=== PATIENT | male | born 1995 | race Caucasian/White ===

== ENCOUNTER 2020-06-04 21:18 | Emergency (ER) | payer BC, OTHER ==
[2020-06-04 21:39] VITALS: BP 150/69; PULSE 70; TEMP 98.6; BMI 25.0
[2020-06-04] MEDS ORDERED: CEPHALEXIN MONOHYDRATE 500 MG CAPSULE (UD) PO ONE (22:16)
[2020-06-04] MEDS ORDERED: DIPHTH,PERTUSS(ACELL),TET 0.5 ML DISP.SYRIN IM ONE (22:18)
[2020-06-04] MEDS ORDERED: CEPHALEXIN MONOHYDRATE 500 MG CAPSULE (UD) ONE (22:18)
== END 2020-06-04 22:29 | disposition home or self-care (01) ==
LOC: FER 21:18
PROC: 0HQGXZZ Repair Left Hand Skin, External Approach (ICD-10-PCS; principal; 2020-06-04)
DX: S61.211A Laceration without foreign body of left index finger without damage to nail, initial encounter (principal)
CPT/HCPCS: 99284-25

== ENCOUNTER 2023-01-18 22:06 | Emergency (ER) | payer BC, OTHER ==
[2023-01-18 22:14] VITALS: BP 109/57; PULSE 59; RESP 18; TEMP 98.2; BMI 25.1
[2023-01-18] MEDS ORDERED: AZITHROMYCIN 250 MG TABLET PO ONE (22:15)
[2023-01-18] MEDS ORDERED: IBUPROFEN 400 MG TABLET (FP) PO ONE ×2 (22:16)
[2023-01-18] MEDS ORDERED: AZITHROMYCIN 500 MG TABLET ONE (22:16)
== END 2023-01-18 22:31 | disposition home or self-care (01) ==
LOC: FER 22:06
DX: R51.9 Headache, unspecified (principal); H92.02 Otalgia, left ear; R07.0 Pain in throat; R59.0 Localized enlarged lymph nodes; H66.92 Otitis media, unspecified, left ear
CPT/HCPCS: 99283-25